=== PATIENT | male | born 1970 | race Caucasian/White ===

== ENCOUNTER 2021-04-29 17:56 | Emergency (ER) | payer OTHER ==
[~2021-04-29] VITALS: Ht 177.8 cm; Wt 102.1 kg
--- NOTE | 2021-04-29 18:09 | NUR ---
al[place], from home, c/o headache since yesterday around 4pm 02/05 ps
[2021-04-29] MEDS ORDERED: IV NS 0.9% 250 ML IV ONE (19:21)
[2021-04-29] MEDS ORDERED: IOHEXOL-300 100 ML VIAL IV ONE (19:21)
[2021-04-29 19:51] LABS: BASOPHILS % (AUTO) 0.2 % (0.0-2.0); EOSINOPHILS % (AUTO) 1.8 % (0.0-6.0); HEMATOCRIT 45 % (39-51); HEMOGLOBIN 15.3 g/dL (13.5-17.5); LYMPHOCYTES # (AUTO) 1.8 K/uL (0.8-4.8); LYMPHOCYTES % (AUTO) 34.6 % (20.0-44.0); MEAN CORPUSCULAR HGB CONC 34 g/dl (31.0-36.0); MEAN CORPUSCULAR VOLUME 102 fL (80-96); MONOCYTES # (AUTO) 0.7 K/uL (0.1-1.30); MONOCYTES % (AUTO) 14.2 % (2.0-12.0); NEUTROPHILS # (AUTO) 2.5 K/uL (1.8-8.9); NEUTROPHILS % (AUTO) 49.2 % (43.0-81.0); PLATELET COUNT (AUTO) 203 K/uL (150-450); RED BLOOD CELL COUNT(AUTO) 4.38 MIL/uL (4.5-6.0); WHITE BLOOD COUNT (AUTO) 5.1 K/uL (4.3-11.0)
[2021-04-29 19:59] LABS: CALCIUM, SERUM 8.9 mg/dL (8.5-10.1); CREATININE 0.8 mg/dL (0.6-1.3); POTASSIUM 3.8 mmol/L (3.5-5.1)
[2021-04-29 20:04] LABS: ALBUMIN 3.8 g/dL (3.4-5.0); BILIRUBIN,TOTAL 0.5 mg/dL (0.2-1.0); TOTAL PROTEIN, SERUM 6.8 g/dL (6.4-8.2)
--- NOTE | 2021-04-29 20:25 | NUR ---
PT TAKEN TO CT VIA [facility]IR[facility]
[2021-04-29 20:56] LABS: BAND % (MANUAL) 2 % (0.0-5.0); EOSINOPHILS % (MANUAL) 2 % (0-4); LYMPHOCYTES % (MANUAL) 34 % (16-48); MONOCYTES % (MANUAL) 10 % (0-11.0); NEUTROPHILS % (MANUAL) 52 (42-76)
[2021-04-29] MEDS ORDERED: IBUP-1955 PO (21:14)
[2021-04-29] MEDS ORDERED: ONDANSETRON 4 MG TAB.RAPDIS ONE (21:17)
[2021-04-29] MEDS ORDERED: HYDROCODONE/APAP 5/325MG TABLET ONE (21:17)
[2021-04-29] MEDS: HYDROCODONE/APAP 5/325MG TABLET PO ONE (21:20)
[2021-04-29] MEDS: ONDANSETRON 4 MG TAB.RAPDIS SL ONE (21:20)
--- NOTE | 2021-04-29 21:20 | NUR ---
Patient discharged to home in stable condition. Written and verbal after care instructions given. Patient verbalizes understanding of instruction. IV removed. Catheter intact and site benign. Pressure and 4x4 applied to site. No bleeding noted. pT ambulatory with a steady gait
[2021-04-29 21:24] VITALS: BP 137/80
== END 2021-04-29 21:20 | disposition home or self-care (01) ==
LOC: ER 17:56
DX: R51.9 Headache, unspecified (principal); Z88.8 Allergy status to other drugs, medicaments and biological substances
CPT/HCPCS: 36415; 70470; 80053; 85007; 85025; 99284; J7050; Q0162; Q9967